=== PATIENT | female | born 1955 | race Caucasian/White ===

== ENCOUNTER 2016-05-28 11:36 | Emergency (ER) | payer OTHER ==
[~2016-05-28 11:36] MED LIST: CHOL20009; IBAN150T7 PO; LEVO50TA6 PO; NATURAL LAXATIVE PO; OXYC7.5T65 PO; ROPI5TAB PO; SIMV20TA2 PO; paroxetine PO
[2016-05-28 11:38] VITALS: TEMP 36.8; Ht 160 cm
--- NOTE | 2016-05-28 12:51 | EMERGENCY ROOM VISIT NOTE ---
ED Visit Note First contact with patient: 11:54 CHIEF COMPLAINT: Foot pain HISTORY OF PRESENT ILLNESS: This 61-year-old female patient presents to the emergency department ambulatory complaining of swelling and pain in the right foot at rest and worse with weight bearing. The patient states that she was standing on a chair last night when she lost balance and fell, injuring her right foot. The fall was not associated with any dizziness or lightheadedness. The patient rates the pain as sharp and 9/10. The patient has not taken anything at home for relief of the pain. The patient is able to walk, but states it is painful to do so. No numbness or weakness. No ankle pain. There are no lacerations of the foot. The patient is able to move all of their toes and their ankle without pain. No previous fracture to this foot. REVIEW OF SYSTEMS: GENERAL: A 6 system review of systems was completed with positives and pertinent negatives in the HPI. ALLERGIES: See EMR MEDICATIONS: See med list PMH: Hypothyroidism, hyperlipidemia SOCIAL HISTORY: The patient lives locally with her . Nonsmoker, denies alcohol use. PHYSICAL EXAM: Vital Signs: Reviewed Nurse's notes, vital signs stable. GENERAL : This is a 61-year-old female, in no acute distress, but appears in pain, well- developed, well-nourished. MUSCULOSKELETAL: There is no visual deformity of the right foot. There is no erythema or ecchymosis. There is no warmth. There is tenderness and swelling over the dorsolateral aspect of the right foot in the area of the fifth metatarsal. There is no tenderness over the lateral or medial malleolus. No tenderness of the tib/fib. The range of motion of the ankle and toes are full. There is no tenderness over the plantar fascia. The skin is intact and there are no lacerations or puncture wounds. Dorsalis pedis pulse 2+ . Capillary refill less than 2 seconds. RADIOGRAPHIC FINDINGS: RIGHT FOOT 3 VIEWS CLINICAL HISTORY: Right foot injury. FINDINGS: 3 views of the right foot are obtained. No prior studies are available for comparison at the time of dictation. The skeletal structures are osteopenic. There is a minimally distracted incomplete fracture through the distal shaft of the fifth metatarsal with overlying soft tissue edema. No additional fracture is identified. There is mild degenerative spurring along the dorsal aspect of the tarsal bones. The joint spaces appear well-maintained. An os navicularis is incidentally noted. IMPRESSION: There is a minimally distracted incomplete spiral fracture through the distal shaft of the fifth metatarsal with overlying soft tissue edema. EMERGENCY DEPARTMENT COURSE: I examined the patient. An X-ray of the right foot was reviewed by myself and radiology and reveals the above fracture. The patient was placed in a fracture boot. She was given information for orthopedic follow-up. Conservative measures were discussed. She declined analgesics. The patient verbalized understanding of my assessment and treatment plan and was discharged home in good condition. DIAGNOSIS: Foot pain Current/Historical Medications Scheduled Cholecalciferol (Vitamin D), 5,000 DAILY Ibandronate Sodium (Ibandronate Sodium), 150 MG PO MONTHLY Levothyroxine Sodium (Levothyroxine Sodium), 50 MCG PO QAM Ropinirole Hydrochloride (Requip), 5-15 MG PO HS Simvastatin (Zocor), 20 MG PO QPM [natural laxative], 1 TAB PO DAILY [paroxetine], 50 MG PO DAILY Scheduled PRN Oxycodone/Acetaminophen 7.5MG/325MG (Percocet 7.5MG/325MG), 1 TAB PO Q8 hrs PRN for Pain Allergies Coded Allergies: Amoxicillin (Unverified Adverse Reaction, Mild, NAUSEA, 05/28/16) Clavulanic Acid (Unverified Adverse Reaction, Mild, NAUSEA, 05/28/16) Moxifloxacin (Unverified Adverse Reaction, Mild, N/V, 05/28/16) Sulfamethoxazole w/Trimethoprim (Verified Adverse Reaction, Unknown, NAUSEA/VOMITING, 05/28/16) Uncoded Allergies: [id number] (Allergy, Mild, NAUSEA, 10/17/14) [id number] (Allergy, Mild, NAUSEA, 10/17/14) [id number] (Allergy, Mild, N/V, 10/17/14) [id number] (Allergy, Unknown, NAUSEA/VOMITING, 10/17/14) Vital Signs Date Time Temp Pulse Resp B/P Pulse Ox O2 Delivery O2 Flow Rate FiO2 05/28/16 13:02 92 20 121/64 100 05/28/16 11:38 36.8 104 18 109/60 94 Departure Information Impression Primary Impression: Fracture of fifth metatarsal bone of right foot Dispostion Home / Self-Care Condition GOOD Referrals Rocky Reyes M.D. (PCP) Mane Barney D.O. Patient Instructions My [facility] Additional Instructions You have been treated in the Emergency Department for a fracture of your fifth metatarsal bone. For pain control, you can use the following [id number] medicines (if >12 yo): - Regular strength (325mg/tab) Tylenol (acetaminophen) 2 tabs every 4-6 hours as needed. Do not exceed 12 tablets in a 24 hour period. Avoid taking more than 4 grams (4000 mg) of Tylenol per day. This includes any other sources of acetaminophen you may take on a regular basis. - Regular strength (200 mg/tab) Advil (ibuprofen) 1-2 tabs every 4-6 hours as needed. Do not exceed a dose of 3200 mg per day. If this is a recent injury (<24 hrs), ice can be applied to the area of pain for the first 3 days to help decrease pain and inflammation. You have been provided the number for an Orthopaedic Surgeon. You should call this number as soon as possible to establish a follow-up visit from today's Emergency Department visit. Wear the boot until follow-up with orthopedics. Return to the Emergency Department if your current symptoms worsen despite treatment course outlined above, or if you develop any of the following symptoms : intractable pain despite aforementioned treatment course or new onset of numbness or tingling of the foot. Problem Qualifiers Primary Impression: Fracture of fifth metatarsal bone of right foot Encounter type: initial encounter Fracture type: closed Fracture alignment : nondisplaced Qualified Codes: S92.354A - Nondisplaced fracture of fifth metatarsal bone, right foot, initial encounter for closed fracture
--- NOTE | 2016-05-28 12:57 | DIAGNOSTIC IMAGING REPORT ---
RIGHT FOOT 3 VIEWS CLINICAL HISTORY: Right foot injury. FINDINGS: 3 views of the right foot are obtained. No prior studies are available for comparison at the time of dictation. The skeletal structures are osteopenic. There is a minimally distracted incomplete fracture through the distal shaft of the fifth metatarsal with overlying soft tissue edema. No additional fracture is identified. There is mild degenerative spurring along the dorsal aspect of the tarsal bones. The joint spaces appear well-maintained. An os navicularis is incidentally noted. IMPRESSION: There is a minimally distracted incomplete spiral fracture through the distal shaft of the fifth metatarsal with overlying soft tissue edema. Electronically signed by: Jonathan Vaughn M.D. 05/28/2016 12:56 PM Dictated Date/Time: 05/28/2016 12:55 PM
[2016-05-28 13:02] VITALS: BP 121/64; PULSE 92; O2SAT 100
== END 2016-05-28 13:03 | disposition home or self-care (01) ==
LOC: C.EDB 11:37 → C.EDD 13:03
DX: S92.354A Nondisplaced fracture of fifth metatarsal bone, right foot, initial encounter for closed fracture (principal); W07.XXXA Fall from chair, initial encounter; E03.9 Hypothyroidism, unspecified; E78.5 Hyperlipidemia, unspecified

== ENCOUNTER → 2016-07-01 | Outpatient (CLI) | payer OTHER ==
--- NOTE | 2016-07-01 16:44 | DIAGNOSTIC IMAGING REPORT ---
Venous Doppler left leg VENOUS DOPP LOWER EXT UNILAT CLINICAL HISTORY: LIMB PAIN edema TECHNIQUE: Venous Doppler COMPARISON STUDY: None FINDINGS: Normal study IMPRESSION: Normal study Electronically signed by: Rodrigo Beavers M.D. 07/01/2016 4:43 PM Dictated Date/Time: 07/01/2016 4:42 PM
== END | disposition home or self-care (01) ==
LOC: C.ULTR 16:12
PROVIDERS: ATTEND Internal Medicine
DX: M79.606 Pain in leg, unspecified (principal)

== ENCOUNTER → 2016-07-06 | Outpatient (CLI) | payer OTHER ==
[2016-07-06 18:21] LABS: THYROID STIMULATING HORMONE < 0.005 uIu/ml (0.300-4.500)
== END | disposition home or self-care (01) ==
LOC: C.LABBFT 11:47
PROVIDERS: ATTEND Internal Medicine
DX: R60.0 Localized edema (principal)

== ENCOUNTER → 2016-07-22 | Outpatient (CLI) | payer OTHER ==
[2016-07-22 16:43] LABS: BASO % 0.1 %; BASO ABS # 0.01 K/uL (0-0.2); COMPLETE YES; EOS % 4.5 %; HEMATOCRIT 38.6 % (37-47); IG% 0.1 %; LYMPH % 38.7 %; LYMPH ABS # 2.83 K/uL (1.2-3.4); MEAN CELL VOLUME 86.7 fL (80-100); MEAN CORPUSCULAR HEMOGLOBIN 29.7 pg (25-34); MEAN CORPUSCULAR HGB CONC 34.2 g/dl (32-36); MEAN PLATELET VOLUME 10.7 fL (7.4-10.4); MONO % 9.6 %; PLATELET COUNT 211 K/uL (130-400); RED BLOOD COUNT 4.45 M/uL (4.2-5.4); WHITE BLOOD COUNT 7.32 K/uL (4.8-10.8)
[2016-07-22 16:56] LABS: ALT/SGPT 21 U/L (12-78); BLOOD UREA NITROGEN 11 mg/dl (7-18); BUN/CREATININE RATIO 15.3 (10-20); CARBON DIOXIDE 28 mmol/L (21-32); CHLORIDE 106 mmol/L (98-107); GLUCOSE 81 mg/dl (70-99); POTASSIUM 3.6 mmol/L (3.5-5.1); SODIUM 143 mmol/L (136-145)
[2016-07-22 16:57] LABS: ALB/GLOB RATIO 1.1 (0.9-2); ALKALINE PHOSPHATASE 63 U/L (45-117); AST/SGOT 18 U/L (15-37)
== END | disposition home or self-care (01) ==
LOC: C.LABBFT 13:58
PROVIDERS: ATTEND Physician Assistant Medical
DX: R60.0 Localized edema (principal)

== ENCOUNTER → 2016-07-28 | Outpatient (CLI) | payer OTHER ==
--- NOTE | 2016-07-28 09:41 | DIAGNOSTIC IMAGING REPORT ---
ULTRASOUND OF THE PELVIS CLINICAL HISTORY: Pelvic edema. COMPARISON STUDY: Pelvic CT dated 08/18/2014. TECHNIQUE: Real-time, grayscale, and color flow sonography of the pelvis is performed both transabdominally and endovaginally. Images are reviewed in the transverse and longitudinal planes. FINDINGS: Uterus: The uterus is normal in size and echotexture, measuring 5.6 x 2.2 x 2.7 cm. Endometrium: The endometrium is normal in appearance, and the endometrial stripe is normal in thickness measuring up to 0.2 cm. Ovaries: The right ovary was not identified. The left ovary is normal for age, measuring 1.3 x 0.9 x 0.7 cm. Normal Doppler waveforms are shown within the left ovary. Pelvis: There is no free fluid in the cul-de-sac. No concerning adnexal lesion is seen. IMPRESSION: 1. No acute sonographic abnormality is identified. 2. The uterus and left ovary are normal in appearance. The right ovary was not visualized. Electronically signed by: Jonathan Vaughn M.D. 07/28/2016 9:39 AM Dictated Date/Time: 07/28/2016 9:37 AM
--- NOTE | 2016-07-28 09:43 | DIAGNOSTIC IMAGING REPORT ---
Ultrasound left thigh LEFT EXTREMITY NONVASCULAR LIMITED CLINICAL HISTORY: R60.0 Localized edema indentation of left lateral thigh s/p fall trauma. Pain. Mass. TECHNIQUE: Soft tissue ultrasound COMPARISON STUDY: None FINDINGS: Normal ultrasonic evaluation of the soft tissues of the left thigh IMPRESSION: Normal study Electronically signed by: Rodrigo Beavers M.D. 07/28/2016 9:41 AM Dictated Date/Time: 07/28/2016 9:41 AM
--- NOTE | 2016-07-28 09:44 | DIAGNOSTIC IMAGING REPORT ---
ULTRASOUND ABDOMEN COMPLETE CLINICAL HISTORY: Abdominal edema. COMPARISON STUDY: Abdominal CT dated 08/18/2014. TECHNIQUE: Real-time, grayscale, and color flow sonography of the abdomen was performed. Images are reviewed in the transverse and longitudinal planes. FINDINGS: Liver: The liver is mildly enlarged and demonstrates heterogeneously increased echotexture consistent with hepatic steatosis. There is no intrahepatic biliary ductal dilatation. The main portal vein is patent. Gallbladder: There are gallstones identified.. There is no gallbladder wall thickening or pericholecystic fluid. A sonographic Atwood's sign is reportedly absent. The common bile duct measures up to 0.5 cm in diameter. Pancreas: Visualized portions of the pancreatic head and body are normal in appearance. The splenic vein is patent. Spleen: The spleen is normal in size and echotexture, measuring 10.0 cm in length. Kidneys: The kidneys images are cortical atrophy and are normal in echotexture. There is no hydronephrosis. The right kidney measures 10.3 cm in length and the left kidney measures 10.7 cm in length. A nonobstructing calculus is seen in the left lower pole. Abdominal vasculature: Visualized portions of the abdominal aorta are normal in caliber noting moderate atherosclerotic irregularity. Ascites: None. IMPRESSION: 1. No acute sonographic abnormality is identified. 2. Hepatomegaly and mild hepatic steatosis. 3. Cholelithiasis without sonographic evidence of acute cholecystitis. 4. Nonobstructing left renal calculus. Electronically signed by: Jonathan Vaughn M.D. 07/28/2016 9:42 AM Dictated Date/Time: 07/28/2016 9:39 AM
== END ==
LOC: C.ULTR 08:06
PROVIDERS: ATTEND Physician Assistant Medical
DX: R10.2 Pelvic and perineal pain (principal); R19.00 Intra-abdominal and pelvic swelling, mass and lump, unspecified site; R60.0 Localized edema

== ENCOUNTER → 2016-08-01 | Outpatient (CLI) | payer OTHER ==
[2016-08-01 17:45] LABS: URINE APPEARANCE CLEAR (CLEAR); URINE BILIRUBIN NEG (NEG); URINE COLOR YELLOW; URINE EPITHELIAL CELL AUTO 20-30 /lpf (0-5); URINE NITRITE NEG (NEG); URINE SPECIFIC GRAVITY 1.008 (1.000-1.030); UROBILINOGEN NEG (NEG); ZZUR CULT IF INDIC CLEAN CATCH NO
[2016-08-01 17:51] LABS: MANUAL MICROSCOPIC REQUIRED? NO; REVIEW REQ? NO
== END | disposition home or self-care (01) ==
LOC: C.LABBFT 15:45
PROVIDERS: ATTEND Physician Assistant Medical
DX: R60.0 Localized edema (principal)

== ENCOUNTER → 2016-08-02 | Outpatient (CLI) | payer OTHER ==
--- NOTE | 2016-08-03 13:55 | MAMMOGRAPHY REPORT ---
BILATERAL DIGITAL SCREENING MAMMOGRAM TOMOSYNTHESIS WITH CAD: 08/02/2016 CLINICAL HISTORY: Routine screening. Patient has no complaints. TECHNIQUE: Breast tomosynthesis in addition to standard 2D mammography was performed. Current study was also evaluated with a Computer Aided Detection (CAD) system. COMPARISON: Comparison is made to exams dated: 07/31/2015 mammogram, 04/15/2013 mammogram, 09/30/2011 mammogram, 10/05/2010 consultation, 10/05/2010 ultrasound, and 09/18/2009 mammogram - [facility]. BREAST COMPOSITION: There are scattered areas of fibroglandular density in both breasts. FINDINGS: There is stable asymmetry in the posterior right breast. Scattered benign rim calcificat ions bilaterally. No suspicious mass, architectural distortion or cluster of microcalcifications is seen. IMPRESSION: ACR BI-RADS CATEGORY 1: NEGATIVE There is no mammographic evidence of malignancy. A 1 year screening mammogram is recommended. The p atient will receive written notification of the results. Approximately 10% of breast cancers are not detected with mammography. A negative mammographic repor t should not delay biopsy if a clinically suggestive mass is present. Kerry Pepper M.D. ay/:08/02/2016 17:15:46 [employer] Caf[employer] Head Cook: Constance MILLER(Kelley)([place]), [facility] letter sent: Normal 1/2 BI-RADS Code: ACR BI-RADS Category 1: Negative
== END | disposition home or self-care (01) ==
LOC: C.MAMM 09:57
PROVIDERS: ATTEND Internal Medicine
DX: Z12.31 Encounter for screening mammogram for malignant neoplasm of breast (principal)

== ENCOUNTER → 2016-08-05 | Outpatient (CLI) | payer OTHER ==
--- NOTE | 2016-08-05 15:35 | DIAGNOSTIC IMAGING REPORT ---
ULTRASOUND LEFT VENOUS DOPP LOWER EXT UNILAT CLINICAL HISTORY: Left leg pain COMPARISON STUDY: No previous studies for comparison. FINDINGS: Real-time and color flow Doppler imaging were performed. Flow was seen within the femoral, popliteal and calf veins with no intraluminal thrombus demonstrated. The saphenous vein is patent. IMPRESSION: No evidence of left lower extremity DVT. Electronically signed by: Damián Montero M.D. 08/05/2016 3:33 PM Dictated Date/Time: 08/05/2016 3:33 PM
== END ==
LOC: C.ULTR 15:05
PROVIDERS: ATTEND Internal Medicine
DX: M79.605 Pain in left leg (principal); R60.0 Localized edema

== ENCOUNTER → 2016-08-19 | Outpatient (CLI) | payer OTHER ==
--- NOTE | 2016-08-19 11:57 | DIAGNOSTIC IMAGING REPORT ---
ULTRASOUND RIGHT LOWER EXTREMITY VENOUS CLINICAL HISTORY: Right lower extremity edema. COMPARISON STUDY: Right lower extremity venous ultrasound dated 10/22/2010. TECHNIQUE: Real-time, grayscale, and color Doppler sonography of the deep veins of the right lower extremity was performed from the inguinal crease to the calf. Compression and augmentation were utilized. FINDINGS: There is no sonographic evidence of deep venous thrombosis identified in the right lower extremity. The common femoral, superficial femoral, and popliteal veins are patent and normally compressible. The greater saphenous vein and the profunda femoris vein at the junction with the common femoral vein are clear. The visualized calf veins are patent. A popliteal cyst measures 4.7 x 1.0 x 3.1 cm. IMPRESSION: 1. There is no sonographic evidence of deep venous thrombosis identified in the right lower extremity. 2. Popliteal cyst. Electronically signed by: Jonathan Vaughn M.D. 08/19/2016 11:56 AM Dictated Date/Time: 08/19/2016 11:54 AM
== END | disposition home or self-care (01) ==
LOC: C.ULTR 11:30
PROVIDERS: ATTEND Physician Assistant Medical
DX: R60.0 Localized edema (principal); M71.21 Synovial cyst of popliteal space [Baker], right knee

== ENCOUNTER → 2016-08-22 | Outpatient (CLI) | payer OTHER | END | disposition home or self-care (01) | LOC: C.PAPS 08:48 | PROVIDERS: ATTEND Physician Assistant | DX: Z01.419 Encounter for gynecological examination (general) (routine) without abnormal findings (principal) ==

== ENCOUNTER → 2016-09-06 | Outpatient (CLI) | payer OTHER ==
[2016-09-06 17:51] LABS: BLOOD UREA NITROGEN 10 mg/dl (7-18); BUN/CREATININE RATIO 12.4 (10-20); CALCIUM 9.1 mg/dl (8.5-10.1); CARBON DIOXIDE 32 mmol/L (21-32); CHLORIDE 108 mmol/L (98-107); CREATININE 0.82 mg/dl (0.60-1.20); GLUCOSE 87 mg/dl (70-99); POTASSIUM 4.2 mmol/L (3.5-5.1); SODIUM 144 mmol/L (136-145)
== END | disposition home or self-care (01) ==
LOC: C.LABBFT 12:45
PROVIDERS: ATTEND Physician Assistant Medical
DX: R60.0 Localized edema (principal)

== ENCOUNTER → 2016-09-13 | Outpatient (CLI) | payer OTHER ==
[2016-09-13 12:30] LABS: BASO % 0.3 %; BASO ABS # 0.02 K/uL (0-0.2); COMPLETE YES; EOS % 3.5 %; HEMATOCRIT 45.3 % (37-47); IG% 0.3 %; LYMPH % 22.7 %; LYMPH ABS # 1.76 K/uL (1.2-3.4); MEAN CELL VOLUME 89.2 fL (80-100); MEAN CORPUSCULAR HEMOGLOBIN 27.6 pg (25-34); MEAN CORPUSCULAR HGB CONC 30.9 g/dl (32-36); MEAN PLATELET VOLUME 11.3 fL (7.4-10.4); MONO % 8.3 %; NEUT % 64.9 %; PLATELET COUNT 229 K/uL (130-400); RED BLOOD COUNT 5.08 M/uL (4.2-5.4); WHITE BLOOD COUNT 7.75 K/uL (4.8-10.8)
[2016-09-13 12:49] LABS: CALCIUM 9.5 mg/dl (8.5-10.1)
[2016-09-13 12:51] LABS: ALT/SGPT 22 U/L (12-78); BLOOD UREA NITROGEN 11 mg/dl (7-18); BUN/CREATININE RATIO 13.3 (10-20); CARBON DIOXIDE 28 mmol/L (21-32); CHLORIDE 108 mmol/L (98-107); CHOLESTEROL 146 mg/dl (0-200); CREATININE 0.82 mg/dl (0.60-1.20); GLUCOSE 99 mg/dl (70-99); POTASSIUM 4.1 mmol/L (3.5-5.1); SODIUM 142 mmol/L (136-145); TRIGLYCERIDES 142 mg/dl (0-150); VERY LOW DENSITY LIPOPROT CALC 28 mg/dl
[2016-09-13 13:06] LABS: ALKALINE PHOSPHATASE 68 U/L (45-117); AST/SGOT 21 U/L (15-37); CHOLESTEROL/HDL RATIO 3.1; HDL CHOLESTEROL 47 mg/dl; LDL CHOLESTEROL CALCULATED 71 mg/dl; THYROID STIMULATING HORMONE < 0.005 uIu/ml (0.300-4.500)
== END | disposition home or self-care (01) ==
LOC: C.LABBFT 07:55
PROVIDERS: ATTEND Internal Medicine
DX: E78.00 Pure hypercholesterolemia, unspecified (principal)

== ENCOUNTER → 2016-09-15 | Outpatient (CLI) | payer OTHER ==
[2016-09-15 13:15] LABS: URINE APPEARANCE CLEAR (CLEAR); URINE BILIRUBIN NEG (NEG); URINE COLOR YELLOW; URINE NITRITE NEG (NEG); URINE PH 6.5 (4.5-7.5); UROBILINOGEN NEG (NEG); ZZUR CULT IF INDIC CLEAN CATCH YES
[2016-09-15 13:19] LABS: MANUAL MICROSCOPIC REQUIRED? NO; REVIEW REQ? YES
[2016-09-15 13:27] LABS: URINE MUCUS PRESENT (NONE PRSENT)
== END | disposition home or self-care (01) ==
LOC: C.LABSPEC 12:29
PROVIDERS: ATTEND Internal Medicine
DX: E78.00 Pure hypercholesterolemia, unspecified (principal); M81.0 Age-related osteoporosis without current pathological fracture; J44.9 Chronic obstructive pulmonary disease, unspecified

== ENCOUNTER → 2016-10-05 | Outpatient (CLI) | payer OTHER ==
--- NOTE | 2016-10-05 09:11 | DIAGNOSTIC IMAGING REPORT ---
CT LUNG SCREENING, LOW DOSE WITH COMPUTER-AIDED DETECTION (CAD) CLINICAL HISTORY: Smoking history. Current smoker. COMPARISON STUDY: Chest CT 09/06/2012. CT DOSE: 69.09 mGycm TECHNIQUE: Low-dose helical CT was acquired without intravenous contrast from lung apices to bases and reconstructed at 2.5 mm every 2 mm. CAD was utilized for this study. FINDINGS: No pleural effusions. No pneumothorax. Moderate emphysema. A few tiny subpleural nodular density within the lung apices favor mild scarring. Stable subcentimeter nodule within the right lower lobe on image 76. Lower thoracic and lumbar spine fusion hardware. The visualized unenhanced liver, spleen, and adrenal glands are unremarkable. No mediastinal or hilar lymphadenopathy. The heart is normal in size. Nodule 1 Category: 2 Nodule 1 Status: Baseline Nodule 1 Description: Solid Nodule 1 Lesion ID: 1 Nodule 1 Slice Number: 66 Nodule 1 Volume (mm3): 49 Nodule 1 Major [place] mm: 4.6 Nodule 1 Minor [place] mm: 2.5 IMPRESSION: Stable subcentimeter nodule within the right lower lobe as detailed above which demonstrates greater than 3 year stability. Therefore, this is considered to be benign. Please refer to the recommendations below for follow-up. CAD FINDINGS: Overall Lung RADS Category: 2 Lung RADS Management Recommendation: Lung-RADS 2: Continue annual screening in 12 months. Lung RADS Follow Up Date: 2017-10-05 Lung RADS Nodule ID: 1 Electronically signed by: Diego Adams M.D. 10/05/2016 9:10 AM Dictated Date/Time: 10/05/2016 9:04 AM
== END | disposition home or self-care (01) ==
LOC: C.CTS 08:46
PROVIDERS: ATTEND Internal Medicine
DX: R91.1 Solitary pulmonary nodule (principal); Z87.891 Personal history of nicotine dependence

== ENCOUNTER → 2017-04-13 | Outpatient (CLI) | payer OTHER | END | disposition home or self-care (01) | LOC: C.MAMM 10:54 | PROVIDERS: ATTEND Internal Medicine | DX: M81.0 Age-related osteoporosis without current pathological fracture (principal); M85.89 Other specified disorders of bone density and structure, multiple sites ==

== ENCOUNTER → 2017-05-08 | Outpatient (CLI) | payer OTHER ==
[2017-05-08 13:33] LABS: CALCIUM 9.4 mg/dl (8.5-10.1)
== END | disposition home or self-care (01) ==
LOC: C.LAB1850 11:09
PROVIDERS: ATTEND Internal Medicine Rheumatology
DX: S32.010A Wedge compression fracture of first lumbar vertebra, initial encounter for closed fracture (principal); M81.0 Age-related osteoporosis without current pathological fracture; N20.0 Calculus of kidney; X58.XXXA Exposure to other specified factors, initial encounter

== ENCOUNTER → 2017-08-03 | Outpatient (CLI) | payer BC ==
--- NOTE | 2017-08-03 14:54 | MAMMOGRAPHY REPORT ---
BILATERAL DIGITAL SCREENING MAMMOGRAM TOMOSYNTHESIS WITH CAD: 08/03/2017 CLINICAL HISTORY: Routine screening. Patient has no complaints. TECHNIQUE: Breast tomosynthesis in addition to standard 2D mammography was performed. Current study was also evaluated with a Computer Aided Detection (CAD) system. COMPARISON: Comparison is made to exams dated: 08/02/2016 mammogram, 07/31/2015 mammogram, 04/15/2013 mammogram, 09/30/2011 mammogram, 10/05/2010 consultation, and 10/05/2010 ultrasound - [facility]. BREAST COMPOSITION: There are scattered areas of fibroglandular density in both breasts. FINDINGS: No suspicious masses, calcifications, or areas of architectural distortion are noted in ei ther breast. There has been no significant interval change compared to prior exams. Scattered bilater al benign-appearing calcifications are not significantly changed. IMPRESSION: ACR BI-RADS CATEGORY 2: BENIGN There is no mammographic evidence of malignancy. A 1 year screening mammogram is recommended. The pa tient will receive written notification of the results. Approximately 10% of breast cancers are not detected with mammography. A negative mammographic report should not delay biopsy if a clinically suggestive mass is present. Alem Gimenez M.D. /:08/03/2017 13:18:52 Scrap Cutter: Rosy MILLER,R, M, [facility] letter sent: Normal 1/2 BI-RADS Code: ACR BI-RADS Category 2: Benign
== END | disposition home or self-care (01) ==
LOC: C.MAMM 09:32
PROVIDERS: ATTEND Internal Medicine
DX: Z12.31 Encounter for screening mammogram for malignant neoplasm of breast (principal)

== ENCOUNTER 2017-12-27 07:12 | Observation (INO) ==
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
--- NOTE | 2017-12-19 10:36 | PAT Medication Instructions ---
Medication Instructions Date of Service December 19, 2017 Home Medications cholecalciferol (vitamin D3) 5,000 unit PO DAILY fentanyl [Duragesic] 1 patch TOPICAL CQ72HR oxycodone-acetaminophen 1 tab PO TID PRN ropinirole 0.5 mg PO QPM sertraline 100 mg PO QPM simvastatin 20 mg PO PM Continue as directed fentanyl [Duragesic] 1 patch TOPICAL CQ72HR (avoid placement over surgical area ) Hold 24 hours prior to surgery ropinirole 0.5 mg PO QPM Hold the morning of surgery cholecalciferol (vitamin D3) 5,000 unit PO DAILY Take morning of surgery Take the following medication the morning of surgery with a sip of water, OTHERWISE NOTHING TO EAT OR DRINK AFTER MIDNIGHT: oxycodone-acetaminophen 1 tab PO TID PRN (okay to take up to 4 hours prior to surgery if needed) Take evening before surgery simvastatin 20 mg PO PM sertraline 100 mg PO QPM oxycodone-acetaminophen 1 tab PO TID PRN (if needed) Other Notes If you have any questions please call us at [phone] or [phone] or [phone] or [phone]
[2017-12-19 10:57] LABS: Basophils # (auto) 0.03 K/uL (0-0.2); Basophils % (auto) 0.3 %; Eosinophils # (auto) 0.26 K/uL (0-0.5); Eosinophils % (auto) 2.8 %; Hematocrit (blood only) 41.1 % (37-47); Hemoglobin 13.6 g/dL (12.0-16.0); Immature Granulocytes # (auto) 0.02 K/uL (0.00-0.02); Immature Granulocytes % (auto) 0.2 %; Lymphocytes # (auto) 2.22 K/uL (1.2-3.4); Lymphocytes % (auto) 23.5 %; Mean Corpuscular Hgb Conc 33.1 g/dL (32-36); Mean Corpuscular Volume 90.1 fL (80-100); Mean Platelet Volume 11.1 fL (7.4-10.4); Monocytes % (auto) 5.3 %; Neutrophils # (auto) 6.41 K/uL (1.4-6.5); Neutrophils % (auto) 67.9 %; Platelet Count 192 K/uL (130-400); RDW Coefficient of Variation 13.2 % (11.5-14.5); RDW Standard Deviation 43.3 fL (36.4-46.3); Red Blood Count 4.56 M/uL (4.2-5.4); White Blood Count 9.44 K/uL (4.8-10.8)
[2017-12-19 11:04] LABS: Partial Thromboplastin Time 25.2 Seconds (21.0-31.0); Prothrombin Time 10.4 Seconds (9.0-12.0)
[2017-12-19 11:40] LABS: BUN Creatinine Ratio 13.6 (10-20); Calcium 8.7 mg/dl (8.5-10.1); Creatinine Clr Calc Pharmacy 66.4 ml/min; Est GFR (African American) 91.5; Est GFR (Non-African American) 78.9; Potassium 4.6 mmol/L (3.5-5.1)
[~2017-12-27 07:12] MED LIST changes: -CHOL20009; +CLINDAMYCIN 600 MG/54 ML BAG IV SCH; -IBAN150T7 PO; +LACTATED RINGER'S 1,000 ML IV SCH; -LEVO50TA6 PO; -NATURAL LAXATIVE PO; -OXYC7.5T65 PO; -ROPI5TAB PO; -SIMV20TA2 PO; -paroxetine PO
[2017-12-27] MEDS ORDERED: CLINDAMYCIN 600 MG/54 ML BAG IV ONE (08:07)
[2017-12-27] MEDS ORDERED: fentaNYL citrate 100 MCG/2 ML VIAL IV PRN (09:22)
[2017-12-27] MEDS ORDERED: HYDROmorphone INJ 1 MG/ML SYRINGE IV PRN (09:22)
[2017-12-27] MEDS ORDERED: ONDANSETRON INJ 2 MG/ML 2 ML VIAL IV PRN ×2 (09:22→14:16)
[2017-12-27] MEDS ORDERED: ePHEDrine sulfate 50 MG/ML AMP IV PRN (09:22)
[2017-12-27] MEDS ORDERED: ATROPINE SULFATE 0.1 MG/ML 5ML SYR IV PRN (09:22)
[2017-12-27] MEDS ORDERED: LIDOCAINE/EPINEPHRINE 1% 20 ML VIAL ONE (10:15)
[2017-12-27] MEDS ORDERED: BUPIVACAINE 0.25% 30 ML VIAL ONE (10:15)
[2017-12-27] MEDS ORDERED: fentaNYL citrate 100 MCG/2 ML VIAL ONE (10:22)
[2017-12-27] MEDS ORDERED: MIDAZOLAM HCL 1 MG/ML 2ML VIAL ONE (10:22)
--- NOTE | 2017-12-27 10:23 | History & Physical Bridge Note ---
Date of Service December 27, 2017 History & Physical Bridge Note I have examined the patient, reviewed the History & Physical and in the interval since the performance of the History & Physical I have noted the following changes of clinical significance: no changes noted
[2017-12-27] MEDS ORDERED: HYDROmorphone INJ 2 MG/ML SYR/VIAL ONE (11:57)
[2017-12-27] MEDS ORDERED: PROPOFOL IV EMULSION 10 MG/ML 20 ML VIAL IV ONE (12:54)
[2017-12-27] MEDS ORDERED: LIDOCAINE HCL 2% 2 ML VIAL/AMP(20MG/ML) INFIL ONE (12:54)
[2017-12-27] MEDS ORDERED: SUCCINYLCHOLINE CHLORIDE 20 MG/ML 10 ML VIAL IV ONE (12:54)
[2017-12-27] MEDS ORDERED: NEOSTIGMINE METHYLSULFATE 5 MG/5 ML SYR ONE (12:54)
[2017-12-27] MEDS ORDERED: GLYCOPYRROLATE 0.2 MG/ML VIAL ONE (12:54)
[2017-12-27] MEDS ORDERED: ROCURONIUM BROMIDE 10 MG/ML 5 ML VIAL IV ONE ×2 (12:54→12:59)
[2017-12-27] MEDS ORDERED: ONDANSETRON INJ 2 MG/ML 2 ML VIAL ONE (12:54)
[2017-12-27] MEDS ORDERED: ACETAMINOPHEN 1,000 MG/100 ML VIAL IV ONE (13:01)
--- NOTE | 2017-12-27 14:08 | Post Operative Brief Note ---
Immediate Post Op Note v1 Date of Surgery December 27, 2017 Pre & Post Diagnosis Operation Date: 12/27/17 09:20 Pre-Op Diagnosis: Bilateral breasts hypertrophy Post-Op Diagnosis: Bilateral breasts hypertrophy Procedure Operation Date: 12/27/17 09:20 Actual Procedures p Bilateral Mammoplasty Reduction(Bilateral) - Marimar Schaffer MD Surgeon Marimar Schaffer MD Blade Grader Operator Greta Nunez PA-C Estimated Blood Loss 25 Findings Consistent with Post-Op Diagnosis Drains Jozef-Kessler Drain (15 albanian channel drains x 2)
[2017-12-27] MEDS ORDERED: OXYCODONE/ACETAMINOPHEN 5mg/325mg TAB PO PRN (14:16)
[2017-12-27] MEDS ORDERED: PROMETHAZINE HCL 12.5 MG in SODIUM CHLORIDE 0.9% 50 ML IV PRN (14:16)
[2017-12-27] MEDS ORDERED: OXAZEPAM 10 MG CAPSULE PO PRN (14:16)
[2017-12-27] MEDS ORDERED: MoRPHine SULFATE 2 MG/ML CARP IV PRN (14:16)
[2017-12-27] MEDS ORDERED: ACETAMINOPHEN 325 MG TAB PO PRN (14:16)
[2017-12-27] MEDS ORDERED: MoRPHine SULFATE 4 MG/ML 1 ML CARP\\VIAL IV PRN ×2 (14:16)
[2017-12-27] MEDS ORDERED: DiphenhydrAMINE HCL 50 MG/ML VIAL IV PRN (14:16)
--- NOTE | 2017-12-27 14:48 | Operative Report ---
Post Operative Report Date of Surgery December 27, 2017 Pre & Post Diagnosis Operation Date: 12/27/17 09:20 Pre-Op Diagnosis: Bilateral breasts hypertrophy Post-Op Diagnosis: Bilateral breasts hypertrophy Procedure Operation Date: 12/27/17 09:20 Actual Procedures p Bilateral Mammoplasty Reduction(Bilateral) - Marimar Schaffer MD Surgeon Marimar Schaffer MD Senior Network Security Engineer Greta Nunez PA-C Estimated Blood Loss 25 Findings Consistent with Post-Op Diagnosis Specimens To pathology Left breast 462 g, right breast 402 g Drains CHINO x2 Anesthesia Type General Complications none Indications Breast hypertrophy, back, neck and shoulder pain Description of Procedure The risks, benefits, and alternatives of the procedure were explained to the patient who agreed and signed consent. She was identified and marked in the preoperative holding area. She was brought to the operating room where she was positioned supine and placed under general anesthesia without incident. Surgical site was prepped and draped sterilely. A time-out procedure was performed. I began with the left side. Markings were reassessed and an 7 cm pedicle was marked. 1% lidocaine with epinephrine was used to anesthetize the planned incisions. A 38 mm cookie cutter was used to circumscribe the nipple-areolar complex. The previously marked 7 cm pedicle was incised using a 15 blade scalpel and deepithelized. I began with the medial dissection of the pedicle using electrocautery. Cautery was used to incise through dermis and breast parenchyma down to the chest wall, taking care not to undermine the pedicle during dissection. A similar procedure was undertaken on the lateral aspect of the pedicle again taking care not to undermine. Lastly, the pedicle was dissected out superiorly using electrocautery and this was carried down to the chest wall as well. I then began with excision of the medial breast tissue followed by lateral aspect of the breast tissue and surrounding keyhole incision. A 15 blade scalpel was used to make the inframammary fold incision and electrocautery was used to deepen the incision through dermis and breast parenchyma. Dissection was then carried superiorly to the level of the superior incision. Superior incision was then incised using a 15 blade scalpel and again dissected using electrocautery. This was undertaken laterally and then around the keyhole portion of the incision. Care was taken to leave some fat on the lateral pectoralis fascia in order to protect the T4 intercostal nerve. Hemostasis was achieved with electrocautery. The specimen was passed off in its entirety for weighing. Additional resection was undertaken from the superior flap in order to facilitate closure of the breast and to provide the best shape. The total resection weight of the left breast was 462 grams. The wound was irrigated with saline and hemostasis was achieved with electrocautery. 0.25% Marcaine plain was used to anesthetize the incisions as well as the pectoralis fascia. A 15 Upper Sorbian Chava drain was brought out through a separate stab incision. The nipple-areolar complex was brought into the keyhole using 2-0 Vicryl deep dermal suture. The wound was closed first in a lateral to mid breast direction and then medial to mid breast direction using 2-0 Vicryl deep dermal sutures. Vertical limb was also approximated using 2-0 Vicryl deep dermals and the nipple-areolar complex was inset using 2-0 Vicryl deep dermal sutures. Next, the superficial dermal layer was closed using 2-0 PDO running Quill suture along the inframammary fold and 3-0 PDS interrupted dermal sutures along the vertical limb and nipple-areolar complex. Lastly 3-0 Monocryl running subcuticular suture was placed. A similar procedure was undertaken on the right side with maximal excision weight of 402 grams. Breasts were symmetric and nipple-areolar complexes were viable bilaterally following wound closure. Dermabond Prineo was applied along the inframammary fold and vertical limb and Dermabond was placed around the nipple-areolar complex. Dry dressings and a surgical bra were placed. The patient was awakened and transferred to recovery room in satisfactory condition. Greta Nunez PA-C was present and scrubbed throughout the procedure and was instrumental in providing retraction during dissection of the pedicle and assisting in wound closure. I attest to the content of the Intraoperative Record and any orders documented therein. Any exceptions are noted below.
--- NOTE | 2017-12-27 14:58 | Anesthesiology Progress Note ---
Date of Service December 27, 2017 Anesthesia Post Procedure Vital Signs Vital Signs: Temp Pulse Resp BP BP Pulse Ox 12/27/17 14:50 90 16 136/96 93 12/27/17 14:40 92 H 16 166/95 H 95 12/27/17 14:30 98 H 16 153/89 H 95 12/27/17 14:23 36.0 C L 98 H 16 159/100 H 95 12/27/17 07:54 36.8 C 18 138/80 97 Pain Intensity Back: Pain Intensity: 3 Notes Mental Status: alert / awake / arousable and participated in evaluation Patient Amnestic to Procedure: Yes Nausea / Vomiting: adequately controlled Pain: adequately controlled Airway Patency, RR, SpO2: stable & adequate BP & HR: stable & adequate Hydration State: stable & adequate Anesthetic Complications: no major complications apparent and Pt Satisfied with anesthetic care
[2017-12-27] MEDS: D5W AND 1/2NSS + 20MEQ KCL 20 MEQ/1,000 ML BAG IV SCH (16:03)
[2017-12-27] MEDS: OXYCODONE/ACETAMINOPHEN 5mg/325mg TAB PO PRN (18:57)
[2017-12-27] MEDS: CEFAZOLIN 2000MG 2,000 MG/15 ML SYR IV SCH (19:30)
[2017-12-28] MEDS: D5W AND 1/2NSS + 20MEQ KCL 20 MEQ/1,000 ML BAG IV SCH (01:15)
[2017-12-28] MEDS: OXYCODONE/ACETAMINOPHEN 5mg/325mg TAB PO PRN ×2 (01:19→08:19)
[2017-12-28] MEDS: CEFAZOLIN 2000MG 2,000 MG/15 ML SYR IV SCH (03:30)
--- NOTE | 2017-12-28 08:03 | Surgery Progress Note ---
Date of Service December 28, 2017 Assessment & Plan (1) Breast hypertrophy: s/p bilateral breast reduction 1. feeling well. drains removed and patient d/c home today Present on Admission?: Yes Subjective VSS. Patient resting comfortably with minimal discomfrot. Feels relief in neck/ shoulder/back pain. No complaints Physical Exam 2 Vital Signs (Past 24 Hours): Last Vital Signs Temp 36.7 C 12/28/17 07:10 Pulse 70 12/28/17 07:10 Resp 18 12/28/17 07:10 BP 100/63 12/28/17 07:10 Pulse Ox 94 12/28/17 07:10 Physical Exam: Drains with scant serous and bloody output- removed. Nipples pink and with sensation bilat. No evidence of infection Constitutional: WD/WN, vitals as above well developed and well nourished; no acute distress
[2017-12-28] MEDS ORDERED: MULTIVITAMIN TAB PO SCH (09:00)
--- NOTE | 2017-12-28 13:59 | Discharge Summary ---
Date of Service December 28, 2017 Admission HPI (Per Admitting) see admission H&P Discharge Data Procedures Performed Operation Date: 12/27/17 09:20 Actual Procedures p Bilateral Mammoplasty Reduction(Bilateral) - Marimar Schaffer MD
--- NOTE | 2017-12-28 14:05 | Discharge Summary ---
Date of Service December 28, 2017 Admission HPI (Per Admitting) see admission H&P Admission Exam (Per Admitting) Constitutional WD/WN, vitals as above well developed and well nourished; no acute distress Specialty Data Specialty Data s/p bilateral breast reduction by Marimar Schaffer Discharge Data Procedures Performed Operation Date: 12/27/17 09:20 Actual Procedures p Bilateral Mammoplasty Reduction(Bilateral) - Marimar Schaffer MD Hospital Course (1) Breast hypertrophy: Patient presented to [facility] with history of breast hypertrophy. She was taken to the OR and underwent bilateral breast reduction. There were no intraop complications. On POD#1 she was feeling well. Her drains were removed. VSS. Exam revealed healing incisions with no evidence of infection. Patient d/c home with instructions to f/u in the office. Discharge Instructions see instructions in patient's discharge orders
== END 2017-12-28 10:15 | disposition home or self-care (01) ==
LOC: 3N 07:12 → ASU 07:12